=== PATIENT | female | born 1930 | race Caucasian/White ===

== ENCOUNTER → 2016-12-18 | Outpatient (CLI) | payer MEDICARE, BC ==
[~2016-12-18] MED LIST: ADV10050 INH; ALLO100T PO; BARIUM SULFATE 135 ML (E-Z HD) PO ONE; BELL1TAB PO; CLOP75TA19 PO; DONE5TAB7 PO; DULO60CA6 PO; ENAL5TAB89 PO; ESOM40CA PO; EZET10TA3 PO; GABA100C PO; GEMF600T60 PO; GLIP-95 PO; IPRA4AER IH; LANT3I SC; LYR75 PO; METF-382; MONT10TA21 PO; PANT40TA4 PO; PENT400T2 PO; RIVA3CAP3 PO; ROPI0.2530 PO; SYN1 PO; TOLT4CAP PO
--- NOTE | 2016-12-18 13:53 | RADRPT ---
PROCEDURE: Barium swallow. CLINICAL INDICATION: Dysphasia. TECHNIQUE: Barium and barium-coated peaches cut in 1 cm pieces was administered orally and several spot and overhead radiographs were obtained. COMPARISON: No prior study is available for comparison. FINDINGS: On the preliminary radiograph of the chest, there is elevation of the right hemidiaphragm. The lung s are clear. There is a left-sided dual lead permanent pacemaker. The heart is mildly enlarged. T here is calcification in the aorta consistent with atherosclerosis. Surgical clips are present in t he right upper quadrant of the abdomen. There is no aspiration during swallowing. Esophageal motility is normal. There is no evidence of obstruction. The particles of fluid easily passed through the esophagus and the gastroesophageal junction. There is no stricture, mass, or ulc er. There is a small hiatus hernia. IMPRESSION: 1. Elevation of the right hemidiaphragm. 2. Left-sided dual lead permanent pacemaker. 3. Mild cardiomegaly. 4. Atherosclerosis. 5. Prior right upper quadrant abdomen surgery. 6. No esophageal stricture, mass, or ulcer. 7. Small hiatus hernia. RPTAT: QQ .Juan Jose Coyle MD, MD Date Time Electronically viewed and signed by .Juan Jose Coyle MD, MD on 12/18/2016 13:53 .R/
== END | disposition home or self-care (01) ==
LOC: RAD 10:12
PROVIDERS: ATTEND Internal Medicine Gastroenterology
DX: R13.10 Dysphagia, unspecified (principal)
CPT/HCPCS: 74230

== ENCOUNTER → 2017-03-04 | Outpatient (CLI) | payer MEDICARE, BC ==
[~2017-03-04] MED LIST changes: -BARIUM SULFATE 135 ML (E-Z HD) PO ONE; -METF-382; +METF500T4
--- NOTE | 2017-03-04 23:37 | RADRPT ---
PROCEDURE: CT Abdomen and Pelvis without contrast. CLINICAL INDICATION: Abdominal pain, mid epigastric and right upper quadrant, nausea, no appetite 1 week TECHNIQUE: CT scan of the abdomen and pelvis without contrast was performed on a multidetector hig h-resolution CT scanner. The patient was scanned without intravenous contrast. Coronal and sagittal reformatted images were obtained from the axial source images. Images were reviewed on a high-resol [employer] PACS workstation. The total exam CTDI equals 9.68 mGy and the total exam DLP equals 514.58 mGy -cm. One or more the following dose reduction techniques were utilized: Automated exposure control, adjus tment of the mA/ or kV according to patient's size, or use of iterative reconstruction technique. COMPARISON: 06/24/2015 FINDINGS: CT abdomen: Small calcified granuloma in left lower lung lobe. Linear atelectasis/fibrosis at lung bases. Dual c hamber cardiac pacemaker wires. Small amount of pericardial fluid. Coronary artery calcification. The liver is normal in size and density without focal mass or intrahepatic biliary dilatation. The spleen is normal in size and homogeneous in density. Small to moderate hiatal hernia. The pancreas a s visualized is normal. Cholecystectomy. There is no evidence for biliary dilatation. The adrenal glands are symmetric and normal. The kidneys are symmetrically unremarkable as well. No renal sharifa culus or obstructive uropathy or mass lesion is seen. Mild nonspecific perinephric soft tissue stran ding bilaterally. The aorta is of normal caliber. Aortic vascular calcifications are present. There is no retroperit childers lymphadenopathy. The humberto hepatis region is clear. Appearance of 2 cm duodenal diverticulum arising from the medial aspect of the second portion of the duodenum. Diverticula in sigmoid, trans verse, ascending colon. There is no specific evidence of acute diverticulitis seen. Small supraumbi lical hernias containing fat only. CT pelvis: The small bowel loops situated within the pelvis are unremarkable. The patient appears to be status post hysterectomy. The pelvic sidewalls and inguinal regions are clear. The sigmoid colon and rec nnuo are remarkable for mild sigmoid diverticulosis. No mass, lymphadenopathy, or free fluid is seen . No acute inflammation is seen. There is no evidence of acute appendicitis. No normal appendix is seen. Multiple calcifications in subcutaneous fat bilaterally in the gluteal regions likely calcifi ed injection granulomas. Mild osteoarthrosis at hips. Degenerative changes at sacroiliac joints. Thoracolumbar spondylosis. Post laminectomy changes in lower lumbar spine. Levoscoliosis of the lumbar spine. IMPRESSION: Cardiac pacemaker. Atherosclerosis. Small to moderate hiatal hernia again seen. Colonic diverticul osis. No specific evidence of acute diverticulitis seen. Small supraumbilical hernias containing f at only again seen. Please see above. RPTAT: HJES .Ziggy Patton MD, MD Date Time Electronically viewed and signed by .Ziggy Patton MD, on 03/04/2017 23:36 .S/
== END | disposition home or self-care (01) ==
LOC: C/S 11:42
DX: R10.13 Epigastric pain (principal); I25.10 Atherosclerotic heart disease of native coronary artery without angina pectoris; K44.9 Diaphragmatic hernia without obstruction or gangrene; K57.90 Diverticulosis of intestine, part unspecified, without perforation or abscess without bleeding; K42.9 Umbilical hernia without obstruction or gangrene; J84.10 Pulmonary fibrosis, unspecified; Z95.0 Presence of cardiac pacemaker
CPT/HCPCS: 74176

== ENCOUNTER 2017-08-31 18:20 | Inpatient (IN) | payer MEDICARE, BC ==
[~2017-08-31] VITALS: Ht 152.4 cm; Wt 52.2 kg
[2017-08-31] MEDS ORDERED: METO5TAB58 PO ×2 (19:50)
[2017-08-31] MEDS ORDERED: erythromycin (19:51)
[2017-08-31] MEDS ORDERED: ERYT (19:51)
[2017-08-31] MEDS ORDERED: ONDANSETRON 4 MG INJ IV PRN (20:30)
[2017-08-31] MEDS ORDERED: HYDROmorphONE 2 MG/ML SYG IV PRN (20:30)
[2017-08-31 20:38] VITALS: BP 168/73; RESP 16
[2017-08-31] MEDS ORDERED: GLUCAGON 1 MG INJ IM PRN (21:00)
[2017-08-31] MEDS: INSULIN ASPART [NOVOLOG] 3 ML PEN SC SCH (21:00)
[2017-08-31] MEDS ORDERED: GLUCOSE GEL 15 GRAM TUBE PO PRN ×2 (21:00)
[2017-08-31] MEDS ORDERED: DEXTROSE 50% 50 ML SYRINGE IV PRN ×2 (21:00)
[2017-08-31] MEDS ORDERED: GLUCOSE GEL 15 GRAM TUBE BUCCAL PRN (21:00)
--- NOTE | 2017-08-31 21:35 | RADRPT ---
PROCEDURE: XR Chest. CLINICAL INDICATION: Cough. TECHNIQUE: Single frontal view of the chest. COMPARISON: 06/24/2015. FINDINGS: Left anterior chest wall dual chamber cardiac pacer is without significant twisting frame changer the interval. Cardiomegaly. Elevation of the right hemidiaphragm. The lungs are clear. No signs of pleural fluid o r pneumothorax are seen. The osseous structures and soft tissues are unremarkable. IMPRESSION: No evidence for active cardiopulmonary disease. RPTAT: [facility] Physician Kenyon Date Time Electronically viewed and signed by Physician Kenyon on 08/31/2017 21:35 RS/
[2017-08-31 22:17] LABS: BASOPHIL # 0.1 10^3/ul (0.0-0.1); BASOPHILS % 0.6 % (0.0-2.0); EOSINOPHILS # 0.1 10^3/ul (0.0-0.5); EOSINOPHILS % 0.6 % (0.0-7.0); HEMATOCRIT 31.6 % (37.0-47.0); HEMOGLOBIN 10.5 g/dl (12.0-16.0); LYMPHOCYTES # 2.1 10^3/ul (0.8-2.9); LYMPHOCYTES % 25.3 % (15.0-51.0); MEAN CORPUSCULAR HEMOGLOBIN 29.8 pg (29.0-33.0); MEAN CORPUSCULAR HGB CONC 33.2 g/dl (32.0-37.0); MEAN CORPUSCULAR VOLUME 89.8 fl (82.0-101.0); MEAN PLATELET VOLUME 10.6 fl (7.4-10.4); MONOCYTE # 0.6 10^3/ul (0.3-0.9); NEUTROPHIL # 5.6 10^3/ul (1.6-7.5); NEUTROPHILS % 66.1 % (39.0-77.0); PLATELET COUNT 346 10^3/UL (140-415); RED BLOOD COUNT 3.52 10^6/ul (4.20-5.40); RED CELL DISTRIBUTION WIDTH 12.5 % (11.5-14.5); WHITE BLOOD COUNT 8.4 10^3/ul (4.8-10.8)
[2017-08-31 22:38] LABS: ALBUMIN/GLOBULIN RATIO 1.37; BILIRUBIN,INDIRECT 0.2 mg/dl (0-1.1); BILIRUBIN,TOTAL 0.2 mg/dl (0.2-1.3); CALCIUM 9.3 mg/dl (8.4-10.2); CREATININE 0.89 mg/dl (0.44-1.00); POTASSIUM 3.2 mmol/L (3.5-5.1); TOTAL PROTEIN 6.9 g/dl (6.1-8.1)
[2017-08-31] MEDS: SOD CHLORIDE 0.9% 1,000 ML IV SCH (22:39)
[2017-09-01 00:30] VITALS: BP 140/84; PULSE 71
[2017-09-01] MEDS: INSULIN ASPART [NOVOLOG] 3 ML PEN SC SCH ×6 (01:00→20:25)
[2017-09-01 01:45] VITALS: BP 122/63; RESP 16
[2017-09-01] MEDS ORDERED: ACCU-CHEK XX SCH (02:00)
[2017-09-01] MEDS: SOD CHLORIDE 0.9% 1,000 ML IV SCH ×5 (03:00→20:30)
[2017-09-01] MEDS: POTASSIUM CHLORIDE 250 ML IVPB SCH ×2 (03:10→07:37)
[2017-09-01] MEDS: PANTOPRAZOLE 40 MG INJ IV SCH (05:31)
[2017-09-01 06:01] LABS: BASOPHIL # 0.1 10^3/ul (0.0-0.1); BASOPHILS % 0.6 % (0.0-2.0); EOSINOPHILS # 0.1 10^3/ul (0.0-0.5); EOSINOPHILS % 1.4 % (0.0-7.0); HEMATOCRIT 30.4 % (37.0-47.0); LYMPHOCYTES # 2.3 10^3/ul (0.8-2.9); LYMPHOCYTES % 26.6 % (15.0-51.0); MEAN CORPUSCULAR HEMOGLOBIN 29.8 pg (29.0-33.0); MEAN CORPUSCULAR HGB CONC 32.9 g/dl (32.0-37.0); MEAN CORPUSCULAR VOLUME 90.5 fl (82.0-101.0); MEAN PLATELET VOLUME 10.5 fl (7.4-10.4); MONOCYTE # 0.7 10^3/ul (0.3-0.9); MONOCYTES % 7.4 % (0.0-11.0); NEUTROPHIL # 5.6 10^3/ul (1.6-7.5); NEUTROPHILS % 63.5 % (39.0-77.0); PLATELET COUNT 327 10^3/UL (140-415); RED BLOOD COUNT 3.36 10^6/ul (4.20-5.40); RED CELL DISTRIBUTION WIDTH 12.5 % (11.5-14.5); WHITE BLOOD COUNT 8.8 10^3/ul (4.8-10.8)
[2017-09-01 06:37] LABS: CHOL/HDL RATIO 4.3 RATIO
[2017-09-01 06:39] LABS: CALCIUM 8.8 mg/dl (8.4-10.2); CREATININE 0.88 mg/dl (0.44-1.00); POTASSIUM 3.5 mmol/L (3.5-5.1)
[2017-09-01] MEDS: LEVOTHYROXINE 100 MCG TAB PO SCH (07:53)
[2017-09-01] MEDS: METOCLOPRAMIDE 5 MG TAB PO SCH ×4 (07:54→20:25)
[2017-09-01] MEDS: CLOPIDOGREL 75 MG TAB PO SCH (08:43)
[2017-09-01] MEDS: IPRATROPIUM (HFA) 12.9 GM INHALER INH SCH ×4 (08:43→20:31)
[2017-09-01] MEDS: RIVASTIGMINE 1.5 MG CAP PO SCH ×2 (08:44→20:25)
[2017-09-01] MEDS: MONTELUKAST 10 MG TAB PO SCH (08:45)
[2017-09-01] MEDS: PREGABALIN 75 MG CAP PO SCH ×2 (08:45→20:25)
[2017-09-01] MEDS: DULOXETINE 30 MG CAP DR PO SCH (08:45)
[2017-09-01] MEDS: ALBUTEROL HFA 8 GM INHALER INH SCH ×5 (09:00→20:32)
[2017-09-01 09:37] LABS: ADD UMIC NO; UR ASCORBIC ACID NEGATIVE (NEGATIVE); UR BILIRUBIN (Dip) NEGATIVE (NEGATIVE); UR BLOOD (Dip) NEGATIVE (NEGATIVE); UR CLARITY CLEAR (CLEAR); UR COLOR YELLOW (YELLOW); UR GLUCOSE (Dip) NEGATIVE (NEGATIVE); UR KETONES (Dip) NEGATIVE (NEGATIVE); UR LEUKOCYTE ESTERASE (Dip) NEGATIVE Leu/ul (NEGATIVE); UR NITRITE (Dip) NEGATIVE (NEGATIVE); UR SPECIFIC GRAVITY (Dip) 1.012 (1.003-1.030); UR TOTAL PROTEIN (Dip) NEGATIVE (NEGATIVE); UR UROBILINOGEN (Dip) NEGATIVE (NEGATIVE)
[2017-09-01] MEDS: SALMETEROL/FLUTICASONE 100/50 INHA INH SCH ×2 (09:41→20:24)
[2017-09-01] MEDS: ENALAPRIL 5 MG TAB PO SCH (09:41)
[2017-09-01 11:50] VITALS: BP 147/69; RESP 19
[2017-09-01 14:15] VITALS: BP 131/58; RESP 18
--- NOTE | 2017-09-01 14:39 | RADRPT ---
Vent Rate: 67 bpm RR Interval: 0 msec TX Interval: 182 msec QRS Duration: 72 msec QT Interval: 446 msec QTC Interval: 471 msec P-R-T [place]: 45 - 12 - 32 degrees Normal sinus rhythm Normal ECG Electronically Signed By: Tony Brownlee [id number]
[2017-09-01 19:51] VITALS: BP 152/69; RESP 20
[2017-09-01] MEDS: TOLTERODINE (SR) 4 MG CAP PO SCH (20:25)
[2017-09-02] MEDS ORDERED: DIPHENOXYLATE/ATROPINE TAB PO PRN
[2017-09-02] MEDS ORDERED: CEPASTAT LOZENGE MT PRN
[2017-09-02 02:40] VITALS: BP 140/60; RESP 18
[2017-09-02] MEDS: SOD CHLORIDE 0.9% 1,000 ML IV SCH ×2 (04:00→11:37)
--- NOTE | 2017-09-02 05:21 | HP ---
DATE OF ADMISSION: 08/31/2017 CHIEF COMPLAINT: Nausea, vomiting and diarrhea with some abdominal pain, duration 5 days. HISTORY OF PRESENT ILLNESS: This patient is an insulin-dependent diabetic who developed nausea, vom iting and diarrhea for 5 days. There was minimal amount of abdominal discomfort. The patient has h ad this before as she was hospitalized several years ago with similar complaint. At that time it wa s decided that this was diabetic gastroparesis. The patient being hospitalized again at this time b ecause of uncontrolled diabetes due to nausea, vomiting and diarrhea. The patient accordingly prese nted to the hospital at this time for admission. FAMILY HISTORY: Mother at age 84 of complications of Parkinson disease. Father at age 80 of carcinoma of the prostate. The patient had 4 brothers, one at age 58 of complications of p araplegia resulting from a gunshot wound. Another one at age 58 of carcinoma of prostate. Two brothers alive and well. She has 1 sister alive and well. There is a family history of carcinoma of the prostate in 1 brother. There is no family history of tuberculosis. The patient and one of h er brothers have diabetes mellitus and 2 of her children and her all have diabetes mellitus. SOCIAL HISTORY: The patient does not smoke and does not drink alcoholic beverages excessively. PAST MEDICAL HISTORY: SERIOUS ACCIDENTS: None. SERIOUS ILLNESSES: Diabetes mellitus for the past 21 years. Cardiac arrhythmia for the past 36 yea rs, this occurred approximately 10 years ago. The patient had a very severe bradycardic episode wit h no beats for several seconds. A pacemaker was inserted at that time. Since that time, the patien t has not had any bradycardia or cardiac complications. PREVIOUS SURGERIES: Cervical laminectomy 10/2005 because of cervical spinal stenosis. Appendectomy at age 15. Hysterectomy at age 26. Cholecystectomy in 1993. Abdominal herniorrhaphy in 1989. Ri ght foot surgery in 1998. Nodule in the throat removed approximately 60 years ago, which was benign . Subtotal gastrectomy in 1993. Cataract extraction in 09/2003. Removal of vocal cord nodules 13 years ago. The patient also had laparoscopic surgery and a Morris procedure for gastroesophageal re flux disease several years ago. She had a benign mass in the left breast which was removed in 2013. MEDICATIONS: The patient takes: 1. eye ointment 0.5 mg daily. 2. Prazosin 2 mg t.i.d. 3. Synthroid daily. 4. Nifedipine 60 mg daily. 5. Zofran 4 mg every 4 hours p.r.n. nausea. 6. She was also given erythromycin 50 mg t.i.d. before meals for nausea, but she discontinued this. 7. Zyloprim 100 mg daily. 8. Lasix 20 mg daily. 9. Gemfibrozil 600 mg twice a day. 10. Lantus insulin 10 mg in the morning. 11. Byetta 5 mcg b.i.d. 12. Bumetanide 5 mg daily. 13. Benicar 20 mg daily. ALLERGIES: SHE IS ALLERGIC TO: 1. PENICILLIN. 2. SULFA. 3. CODEINE. 4. INDOCIN. 5. LOPID. 6. DARVOCET. 7. ULTRAM. 8. TETRACYCLINE. 9. RELAFEN. 10. HYDROCHLOROTHIAZIDE. REVIEW OF SYSTEMS: CARDIOVASCULAR: No history of hypertension. Cardiac arrhythmia consisting of sick sinus syndrome f or the past 36 years. The patient had insertion of a pacemaker several years ago with cessation of her arrhythmia. No history of congestive heart failure, rheumatic fever. No history of valvular he art disease. No history of coronary insufficiency, myocardial infarction or angina pectoris. The rena weller underwent a cardiac evaluation and has been cleared for this surgery by her paper coater, Dr. Garcia. RESPIRATORY: The patient has asthma. No history of tuberculosis or pneumonia. GASTROINTESTINAL: Bleeding peptic ulcer with hematemesis 22 years ago. The patient had a subtotal gastrectomy in 1993, cholecystectomy in 1993, episode of hematemesis 1993. The patient had melena a t that time also. Laparoscopic surgery for gastroesophageal reflux disease. Morris procedure with hiatal hernia several years ago. MUSCULOSKELETAL: No history of weakness, deformity or injury to the musculoskeletal system. No his tory of fracture. History of osteoarthritis and history of cervical spinal stenosis with cervical l aminectomy 10/2005. NEUROLOGICAL: Patient had a diagnosis of Parkinson's disease several years ago, but this is questio nable. No history of epilepsy, convulsion or CVA. The patient had 1 episode of loss of consciousne ss approximately 18 years ago. She has been diagnosed with early Parkinson disease but this diagnos is is invalid. GENITOURINARY: No history of glomerulonephritis, pyelonephritis or other genital tract disorder. H ysterectomy because of menometrorrhagia performed at age 26. No history of cystitis. PHYSICAL EXAMINATION: GENERAL: The patient is a well-developed white female who appears acutely ill. VITAL SIGNS: Blood pressure is 120/40, pulse 94, respiration 24, temperature 98.6. SKIN: No evidence of dermatitis. BREASTS: Evidence of an ill-defined mass in the left breast. HEENT: Eyes: PERRLA, EOM normal. Disks flat. Peripheral and forward vision grossly intact. Ears and nose clear. Evidence of bilateral cataract surgery. CARDIOVASCULAR: PMI left fifth interspace, left midclavicular line. Normal sinus rhythm. [place] r present in the left upper chest. No murmurs, no thrills, no bruits. A2 is greater than P2. No d istention of jugular veins. No ankle edema. Hepatojugular reflux is not present. ABDOMEN: Liver, kidneys, spleen are not palpable. Bowel sounds are normal. There are no intra-abd ominal masses or bruits. The patient has slight tenderness over the whole abdomen, but there is no point tenderness or rebound tenderness. GENITOURINARY AND PELVIC: Deferred. The patient had pelvic examination approximately 8 months ago and negative result. MUSCULOSKELETAL: No evidence of deformity or injury to the musculoskeletal system. NEUROLOGIC: DTRs are normal and equal bilaterally. Plantars are flexor. No pathological reflexes are present. The patient is well oriented to time, place, and person. PERIPHERAL VASCULAR: No carotid or subclavian artery bruits. Femoral and dorsal pedal pulses are n ormal and equal bilaterally. IMPRESSION: 1. Gastroenteritis, possible diabetic gastropathy. 2. History of sick sinus syndrome with pacemaker insertion. 3. History of cervical spinal stenosis with cervical laminectomy, status postoperative 10/2005. 4. Gastroesophageal reflux disease. Laparoscopic surgery for gastroesophageal reflux disease and a Morrsi procedure and also a hiatal hernia repair. 5. History of peptic ulcer disease and hematemesis. 6. Diabetes mellitus type 2. 7. Asthma. 8. History of anterior chest wall syndrome. Dictated By: ISABELLE WALSH/HOSSEIN Conf#: [id number] DID#: [id number]
[2017-09-02 05:55] LABS: BASOPHIL # 0.1 10^3/ul (0.0-0.1); BASOPHILS % 0.8 % (0.0-2.0); EOSINOPHILS # 0.2 10^3/ul (0.0-0.5); EOSINOPHILS % 3.1 % (0.0-7.0); HEMATOCRIT 29.8 % (37.0-47.0); HEMOGLOBIN 9.8 g/dl (12.0-16.0); LYMPHOCYTES # 2.2 10^3/ul (0.8-2.9); LYMPHOCYTES % 33.9 % (15.0-51.0); MEAN CORPUSCULAR HEMOGLOBIN 29.9 pg (29.0-33.0); MEAN CORPUSCULAR HGB CONC 32.9 g/dl (32.0-37.0); MEAN CORPUSCULAR VOLUME 90.9 fl (82.0-101.0); MEAN PLATELET VOLUME 10.2 fl (7.4-10.4); MONOCYTE # 0.6 10^3/ul (0.3-0.9); MONOCYTES % 8.9 % (0.0-11.0); NEUTROPHIL # 3.5 10^3/ul (1.6-7.5); PLATELET COUNT 296 10^3/UL (140-415); RED BLOOD COUNT 3.28 10^6/ul (4.20-5.40); RED CELL DISTRIBUTION WIDTH 12.6 % (11.5-14.5); WHITE BLOOD COUNT 6.6 10^3/ul (4.8-10.8)
[2017-09-02] MEDS: PANTOPRAZOLE 40 MG INJ IV SCH (06:20)
[2017-09-02 06:26] LABS: CALCIUM 8.8 mg/dl (8.4-10.2); CREATININE 0.93 mg/dl (0.44-1.00); POTASSIUM 3.9 mmol/L (3.5-5.1)
--- NOTE | 2017-09-02 07:25 | PN ---
DATE: 09/01/2017 SUBJECTIVE: The patient is awake and alert, no abdominal pain, no more vomiting, no more nausea, no more diarrhea. The patient feels well and is eating. Her appetite has returned. She appears well hydrated. OBJECTIVE: HEART: Normal sinus rhythm. CHEST: Clear to A and P. ABDOMEN: Liver, kidneys, spleen are not palpable. Bowel sounds are normal. There are no intra-abd ominal masses or bruits. EXTREMITIES: No ankle edema. VITAL SIGNS: Temperature is 98.3, blood pressure is 152/69, pulse is 18, respiratory rate is 20. I ntake and output: 1932.5 intake, 800 output. LABORATORY DATA: White blood cell count 8800, hemoglobin 10, hematocrit 30.4, platelet count 327,00 0, differential was normal. Sed rate is 25 mm per hour. Blood sugar is 121. Urine is clear and no rmal. Blood culture was no growth x2. Chest x-ray is normal, shows no evidence of cardiopulmonary disease. Patient doing well, ambulating. May be discharged in the next 24 to 48 hours if improvement persist s. Dictated By: ISABELLE WALSH/HOSSEIN Conf#: [id number] DID#: [id number]
[2017-09-02] MEDS: INSULIN ASPART [NOVOLOG] 3 ML PEN SC SCH ×4 (07:57→21:00)
[2017-09-02 08:00] VITALS: BP 170/74; RESP 16
[2017-09-02] MEDS: ALBUTEROL HFA 8 GM INHALER INH SCH ×4 (08:37→21:00)
[2017-09-02] MEDS: IPRATROPIUM (HFA) 12.9 GM INHALER INH SCH ×4 (08:38→21:00)
[2017-09-02] MEDS: SALMETEROL/FLUTICASONE 100/50 INHA INH SCH ×2 (08:39→21:01)
[2017-09-02] MEDS: ENALAPRIL 5 MG TAB PO SCH (08:41)
[2017-09-02] MEDS: METOCLOPRAMIDE 5 MG TAB PO SCH ×4 (08:42→21:00)
[2017-09-02] MEDS: CLOPIDOGREL 75 MG TAB PO SCH (08:43)
[2017-09-02] MEDS: MONTELUKAST 10 MG TAB PO SCH (08:44)
[2017-09-02] MEDS: PREGABALIN 75 MG CAP PO SCH ×2 (08:45→21:00)
[2017-09-02] MEDS: DULOXETINE 30 MG CAP DR PO SCH (08:46)
[2017-09-02] MEDS: RIVASTIGMINE 1.5 MG CAP PO SCH ×2 (08:47→21:00)
[2017-09-02] MEDS: LEVOTHYROXINE 100 MCG TAB PO SCH (08:48)
[2017-09-02] MEDS ORDERED: BARIUM SULF 2% 450 ML BTL (BERRY SMOOTHIE) PO ONE (11:00)
[2017-09-02 13:26] VITALS: BP 144/65; RESP 18
[2017-09-02 14:57] LABS: MICROALBUMIN 3.4 mg/dL
--- NOTE | 2017-09-02 17:17 | RADRPT ---
PROCEDURE: CT SCAN OF THE ABDOMEN AND PELVIS NON CONTRAST CLINICAL INDICATION: Abdominal pain TECHNIQUE: Utilizing the multi-slice spiral CT scanner, Transaxial images were obtained through the abdomen and pelvis without contrast. Additional sagittal, coronal, MPR images were also obtained. DICOM images are available Radiation Dose: CTDI vol 7.68 mGy, DLP 417.97 mGy-cm. One of more of the following dose reduction techniques were utilized: -automatic exposure control -adjustment of the mA and/or kV according to patient size -Use of iterative reconstruction technique Contrast used: None COMPARISON: 03/04/2017 FINDINGS: Limited slices through the lung bases cardiomegaly, AICD wires, elevated right hemidiaphragm is seen . Coronary artery calcifications are noted without pericardial half fusion. Moderate retrocardiac hi atal hernia is seen. Degenerative changes noted in the lower dorsal spine. Scarring versus atelectas is noted in the lung bases with dilated bronchi is suggestive of bronchiectasis. CT Abdomen Enlarged fatty liver, normal spleen, distended stomach, cholecystectomy clips, normal adrenals, panc reas is seen. Kidneys demonstrate perinephric fat stranding without intra renal stones or hydronephr osis. Small bowel loops are filled with contrast and mildly dilated. Moderate stool noted in the lar ge bowel with the no free air or ascites seen. Small ventral hernia contains fat, image 3 - 89, unch anged from prior study. Severe degenerative changes noted in the lumbosacral spine. CT pelvis: Extensive diverticula noted in the sigmoid colon. Distended bladder is seen. No pelvic a scites noted. Calcification in muscles of the buttock suggestive of injection granuloma. Prior yves ectomy at L4-5 level is seen with severe degenerate changes noted in the entire lumbar spine. IMPRESSION: Fatty liver. Moderate retrocardiac hiatal hernia seen. Moderate colonic stool in the large bowel with dilated small bowel noted. RPTAT: [facility] Physician Wade Date Time Electronically viewed and signed by Physician Wade on 09/02/2017 17:16 MB/
[2017-09-02 20:00] VITALS: BP 120/72; RESP 20
[2017-09-02] MEDS: TOLTERODINE (SR) 4 MG CAP PO SCH (21:00)
[2017-09-03 02:00] VITALS: BP 122/60; RESP 20
[2017-09-03] MEDS ORDERED: PANTOPRAZOLE (EC) 40 MG TAB PO SCH (06:00)
[2017-09-03 07:39] VITALS: BP_SYST 145; RESP 18
[2017-09-03] MEDS: INSULIN ASPART [NOVOLOG] 3 ML PEN SC SCH ×2 (08:00→12:29)
[2017-09-03] MEDS: ALBUTEROL HFA 8 GM INHALER INH SCH ×2 (09:00→12:34)
[2017-09-03] MEDS: DULOXETINE 30 MG CAP DR PO SCH (10:07)
[2017-09-03] MEDS: RIVASTIGMINE 1.5 MG CAP PO SCH (10:08)
[2017-09-03] MEDS: ENALAPRIL 5 MG TAB PO SCH (10:08)
[2017-09-03] MEDS: LEVOTHYROXINE 100 MCG TAB PO SCH (10:08)
[2017-09-03] MEDS: CLOPIDOGREL 75 MG TAB PO SCH (10:09)
[2017-09-03] MEDS: METOCLOPRAMIDE 5 MG TAB PO SCH ×2 (10:09→12:32)
[2017-09-03] MEDS: MONTELUKAST 10 MG TAB PO SCH (10:09)
[2017-09-03] MEDS: SALMETEROL/FLUTICASONE 100/50 INHA INH SCH (10:10)
[2017-09-03] MEDS: IPRATROPIUM (HFA) 12.9 GM INHALER INH SCH ×2 (10:11→12:32)
[2017-09-03] MEDS: PREGABALIN 75 MG CAP PO SCH (10:33)
== END 2017-09-03 13:15 | disposition home or self-care (01) | DRG 392 ==
LOC: MS2 18:47
DX: K52.9 Noninfective gastroenteritis and colitis, unspecified (principal); E11.43 Type 2 diabetes mellitus with diabetic autonomic (poly)neuropathy; E11.65 Type 2 diabetes mellitus with hyperglycemia; I49.5 Sick sinus syndrome; K31.84 Gastroparesis; J45.909 Unspecified asthma, uncomplicated; K21.9 Gastro-esophageal reflux disease without esophagitis; R07.89 Other chest pain; Z87.39 Personal history of other diseases of the musculoskeletal system and connective tissue; Z95.0 Presence of cardiac pacemaker; Z87.11 Personal history of peptic ulcer disease; Z88.6 Allergy status to analgesic agent; Z88.0 Allergy status to penicillin; Z88.2 Allergy status to sulfonamides; Z88.8 Allergy status to other drugs, medicaments and biological substances
CPT/HCPCS: 71010; 74176; 80048; 80053; 80061; 81003; 82043; 82270; 82962; 83036; 85025; 85651; 87040; 87045; 87075; 87177; 87338; 93005; C9113; J1815; J2405; J3480; J7030

== ENCOUNTER → 2018-03-23 | Outpatient (CLI) | END | disposition home or self-care (01) ==

== ENCOUNTER → 2018-03-26 | Outpatient (CLI) | END | disposition home or self-care (01) ==